=== PATIENT | female | born 1995 | race Caucasian/White ===

== ENCOUNTER 2023-05-04 00:50 | Emergency (ER) | payer SELFPAY ==
[~2023-05-04] VITALS: Ht 157.5 cm; Wt 72.1 kg
[2023-05-04 01:00] VITALS: BP 140/86; PULSE 87; RESP 17; TEMP 97.7; O2SAT 99
--- NOTE | 2023-05-04 01:03 | NUR ---
TO LOBBY A/W BED AMBULATORY
[2023-05-04 01:05] VITALS: BP 140/86; PULSE 87; RESP 17; TEMP 97.7; O2SAT 99
[2023-05-04 01:49] LABS: BARBITURATE, URINE NEGATIVE ng/ml (NEG <=200); BENZODIAZEPINE, URINE NEGATIVE ng/mL (NEG <=200)
[2023-05-04 01:50] LABS: CANNABINOID, URINE NEGATIVE ng/mL (NEG <=50); COCAINE, URINE NEGATIVE ng/mL (NEG <=300)
[2023-05-04 01:51] LABS: OPIATE, URINE NEGATIVE ng/mL (NEG <=2000); PHENCYCLIDINE SCREEN,URINE NEGATIVE ng/mL (NEG <=25)
--- NOTE | 2023-05-04 02:00 | NUR ---
PT AMB TO BED #6
--- NOTE | 2023-05-04 03:40 | NUR ---
Patient discharged with v/s stable. Written and verbal after care instructions given and explained. Patient verbalized understanding. Ambulatory with steady gait. All questions addressed prior to discharge. Advised to follow up with PMD.
== END 2023-05-04 03:40 | disposition home or self-care (01) ==
LOC: MED 00:50
DX: T43.621A Poisoning by amphetamines, accidental (unintentional), initial encounter (principal); R53.83 Other fatigue; R53.1 Weakness; F10.90 Alcohol use, unspecified, uncomplicated; F41.9 Anxiety disorder, unspecified; Y90.9 Presence of alcohol in blood, level not specified; Y92.89 Other specified places as the place of occurrence of the external cause
CPT/HCPCS: 80305; 81025; 93005; 99284